=== PATIENT | female | born 1960 | race Caucasian/White ===

== ENCOUNTER 2018-08-07 03:55 | Inpatient (IN) ==
--- NOTE | 2018-08-07 04:10 | Emergency Department Note ---
Disposition Clinical Impression: Cellulitis Qualifiers: Site of cellulitis: extremity Site of cellulitis of extremity: lower extremity Laterality: right Qualified Code(s): L03.115 - Cellulitis of right lower limb Disposition: Still a Patient Referrals: NONE,PCP [Primary Care Provider] - Forms: ED Satisfaction Letter Lower Extremity Injury HPI - General Chief Complaint: ED Extremity Injury, Lower Stated Complaint: R foot injury Time Seen by Provider: 08/07/18 04:02 Source: patient Mode of arrival: private vehicle Limitations: no limitations Nursing Notes Reviewed: Yes Vital Signs Reviewed: Yes - History of Present Illness HPI Narrative: 57-year-old female presents to emergency room for evaluation of right lower extremity edema, redness, pain since Saturday. Patient states she is an IV drug user, patient states she utilized IV drugs on Saturday to her right foot since then swelling, pain, tenderness and has become worse and worse. Patient states was feeling time she used in her right foot. Patient denies fever, chills, nausea, vomiting, constipation or diarrhea. Onset (ago): day(s) Mechanism of Injury: other Context: other Improves with: nothing Worsens with: weight bearing, movement, palpation Associated symptoms: Reports: ambulatory - Related Data Allergies Allergy/AdvReac Type Severity Reaction Status Date / Time aspirin Allergy Hives Verified 08/07/18 04:00 vancomycin Allergy Hives Verified 08/07/18 04:00 All systems ED: reviewed and negative except as stated. Review of Systems: As Per HPI Constitutional: Denies: fever, chills Cardiovascular: Denies: chest pain Respiratory: Denies: cough Gastrointestinal: Denies: abdominal pain, nausea, vomiting Integumentary: Reports: other Past Medical History - Past Medical History Attestation: Yes The following information was validated with the patient. Source: patient Medical history: Reports: CHF Psychiatric history: Reports: depression - Social History Smoking Status: Current every day smoker Alcohol use: Reports: none Drug use: Reports: IV Drug Use Physical Exam - General Limitations: no limitations General appearance: alert, in no apparent distress - Head Head exam: atraumatic, normocephalic, normal inspection - Eye Eye exam: Present: normal appearance - Expanded Lower Extremity Exam Knee exam: Present: normal inspection, full ROM Lower leg exam: Present: tenderness, swelling Ankle exam: Present: tenderness, swelling, erythema. Absent: full ROM Foot/toe exam: Present: tenderness, swelling (Dorsal surface), erythema (Dorsal surface) Neurovascular/Tendon exam: Present: normal capillary refill. Absent: pulse deficit Gait: observed and limited by pain - Neurological Exam Neurological exam: Present: alert, oriented X3 - Psychiatric Psychiatric exam: Present: normal affect, normal mood - Skin Skin exam: Present: warm, dry, intact, normal color Course Course Narrative: Well-developed female in no acute distress. Right lower extremity noted with obvious edema, very erythema noted to the entire lower extremity from mid calf down to the mid dorsal surface of the foot. Patient is neurovascularly intact, capillary refill brisk. Able to bend flexes however with ankle she is unable to bend and flex as well due to the swelling and pain. Concern for deep tissue abscess related to mechanism of infection, we will CT her right lower extremity, obtain basic labs, blood cultures reevaluate. Most likely, patient will require admission for IV antibiotics rather there is an abscess with a surgical need or just treatment of cellulitis, I did discuss this with patient who would be agreeable to admission. Vital Signs Temperature 98.9 F 08/07/18 03:57 Pulse Rate 101 08/07/18 03:57 Respiratory Rate 20 08/07/18 03:57 Blood Pressure 134/78 08/07/18 03:57 O2 Sat by Pulse Oximetry 97 08/07/18 03:57 Temperature 98.9 F 08/07/18 03:57 Pulse Rate 101 08/07/18 03:57 Respiratory Rate 20 08/07/18 03:57 Blood Pressure 134/78 08/07/18 03:57 O2 Sat by Pulse Oximetry 97 08/07/18 03:57 Oxygen Delivery Oxygen Delivery Room Air Extremity Injury, Lower - Lab Data Result diagrams: 08/07/18 05:09 08/07/18 05:09 Lab Results 08/07/18 08/07/18 08/07/18 Range/Units 05:09 05:09 05:09 WBC 11.9 H (4.3-11.1) K/mcL RBC 5.07 H (3.82-4.97) M/mcL Hgb 14.5 (11.5-15.4) g/dL Hct 44.4 (35.3-44.9) % MCV 87.6 (83.0-100.0) fL MCH 28.6 (28.0-33.3) pg MCHC 32.7 (31.6-35.5) g/dL RDW 13.0 (11.5-14.5) % Plt Count 219 (140-400) K/mcL MPV 10.4 (9.4-12.4) fL Immature Gran % 0.4 (0-4) % Seg Neutrophils % 70.7 % Lymphocytes % 20.0 % Monocytes % 8.2 % Eosinophils % 0.3 % Basophils % 0.4 % Neutrophils # 8.4 (1.6-8.9) K/mcL Lymphocytes # 2.4 (0.6-4.6) K/mcL Monocytes # 1.0 (0.0-1.3) K/mcL Eosinophils # 0.0 (0.0-0.6) K/mcL Basophils # 0.1 (0.0-0.2) K/mcL Sodium 134 L (136-145) mEq/L Potassium 3.5 (3.5-5.1) mEq/L Chloride 102 (98-107) mEq/L Carbon Dioxide 27 (23-29) mEq/L BUN 12 (6-20) mg/dL Creatinine 0.61 (0.60-1.20) mg/dL Est GFR ( Amer) > 60 (> 60) Est GFR (Non-Af Amer) > 60 (> 60) BUN/Creatinine Ratio 20 (6-26) Glucose 103 (70-105) mg/dL Calculated Osmolality 278 L (280-300) Lactic Acid 0.7 (0.5-2.2) mmol/L Calcium 8.7 (8.6-10.3) mg/dL Total Bilirubin 0.7 (0.3-1.0) mg/dL Direct Bilirubin 0.2 (0.0-0.2) mg/dL Indirect Bilirubin 0.5 (0.0-1.2) mg/dL AST 13 (13-39) Units/L ALT 13 (7-52) Units/L Alkaline Phosphatase 73 (34-104) Units/L Serum Total Protein 6.9 (6.4-8.9) g/dL Albumin 3.7 (3.5-5.7) g/dL Globulin 3.2 (2.4-3.5) g/dL Albumin/Globulin Ratio 1.2 (1.1-2.2) SKiana - Jose Situation: Demographics, MOA Background: Presenting Complaint, Relevant PMH, Meds, & Allergies Assessment: Vital Signs, Course and respsone to treatment, Exam Concerns, Patient/Family Expectation, Pertinant Lab Results, Outstanding Labs Recommendation: Barrier(s) to disposition, Recommendation based on pending studies, treatments, or consults S.B.David Report Given to: Rosa Farrell CNP SKiana Repor Time: 06:00 Attestation Statement - Attestation Attestation: DR Medellin note: Patient was seen in conjunction with HUGO Yañez. Please see his charting for complete documentation. Assessment [id number] time with the patient and I agree with the patient's treatment and disposition. IV drug use w/ progressive redness/swelling to dorsum of Rt foot for 2-3 days; iv heroine use intermittent for years; non toxic in appearance; no posterior rt leg pain; no chest pain/sob at this time; cellultis is moderate/progressive and will require admission; bloodwork reviewed; abx ordered and being administered in the ER;
[2018-08-07] MEDS ORDERED: Isovue-370 500 ML INFUS..BTL IV ONE (04:19)
[2018-08-07] MEDS ORDERED: Doxycycline 100 MG in 0.9 % Sodium Chloride Mini Bag 100 ML IVPB ONE (04:45)
[2018-08-07] MEDS ORDERED: Piperacillin/Tazobactam 3.375 GM in 0.9 % Sodium Chloride Mini Bag 100 ML IVPB ONE (04:47)
[2018-08-07 05:24] LABS: Basophils # 0.1 K/mcL (0.0-0.2); Basophils % 0.4 %; Eosinophils % 0.3 %; Hematocrit 44.4 % (35.3-44.9); Hemoglobin 14.5 g/dL (11.5-15.4); Immature Granulocytes % 0.4 % (0-4); Lymphocytes # 2.4 K/mcL (0.6-4.6); Mean Corpuscular HGB Conc 32.7 g/dL (31.6-35.5); Mean Corpuscular Hemoglobin 28.6 pg (28.0-33.3); Mean Corpuscular Volume 87.6 fL (83.0-100.0); Mean Platelet Volume 10.4 fL (9.4-12.4); Monocytes % 8.2 %; Neutrophils # 8.4 K/mcL (1.6-8.9); Platelet Count 219 K/mcL (140-400); Red Blood Count 5.07 M/mcL (3.82-4.97); Segmented Neutrophils % 70.7 %
[2018-08-07 05:42] LABS: Alanine Aminotransferase 13 Units/L (7-52); Albumin 3.7 g/dL (3.5-5.7); Albumin/Globulin Ratio 1.2 (1.1-2.2); Alkaline Phosphatase 73 Units/L (34-104); Aspartate Amino Transferase 13 Units/L (13-39); BUN/Creatinine Ratio 20 (6-26); Bilirubin,Direct 0.2 mg/dL (0.0-0.2); Bilirubin,Indirect 0.5 mg/dL (0.0-1.2); Bilirubin,Total 0.7 mg/dL (0.3-1.0); Blood Urea Nitrogen 12 mg/dL (6-20); Calcium 8.7 mg/dL (8.6-10.3); Carbon Dioxide 27 mEq/L (23-29); Chloride 102 mEq/L (98-107); Globulin 3.2 g/dL (2.4-3.5); Glucose 103 mg/dL (70-105); Osmolality,Calculated 278 (280-300); Potassium 3.5 mEq/L (3.5-5.1); Sodium 134 mEq/L (136-145); Total Protein 6.9 g/dL (6.4-8.9); eGFR For Non-African Americans > 60 (> 60)
[2018-08-07] MEDS ORDERED: Ketorolac 15 MG/ML VIAL IVP ONE (06:00)
--- NOTE | 2018-08-07 06:22 | Emergency Department Note ---
Disposition Clinical Impression: Cellulitis of right lower extremity Disposition: Admitted As Inpatient Referrals: NONE,PCP [Primary Care Provider] - Forms: ED Satisfaction Letter Time of Disposition: 10:36 (Patient eloped) General Adult HPI - General Chief complaint: ED Extremity Injury, Lower Stated complaint: R foot injury Time Seen by Provider: 08/07/18 04:02 Source: patient Mode of arrival: private vehicle Limitations: no limitations - History of Present Illness Pain Scale: 8 - Related Data Home Medications Medication Instructions Recorded Confirmed Albuterol Sulfate [Albuterol 2 puff IH Q4H PRN 08/07/18 08/07/18 Inhaler] Duloxetine HCl [Cymbalta] 60 mg PO DAILY 08/07/18 08/07/18 Quetiapine Fumarate [SEROquel] 12.5 mg PO HS PRN 08/07/18 08/07/18 Umeclidinium [place] [Incruse 62.5 mcg IH DAILY 08/07/18 08/07/18 Ellipta] Allergies Allergy/AdvReac Type Severity Reaction Status Date / Time aspirin Allergy Hives Verified 08/07/18 04:00 vancomycin Allergy Hives Verified 08/07/18 04:00 Constitutional: Denies: fever, chills Cardiovascular: Denies: chest pain Respiratory: Denies: cough Gastrointestinal: Denies: abdominal pain, nausea, vomiting Integumentary: Reports: other Past Medical History - Past Medical History Medical history: Reports: CHF Psychiatric history: Reports: depression - Social History Smoking Status: Current every day smoker Alcohol use: Reports: none Drug use: Reports: IV Drug Use Physical Exam - General Limitations: no limitations General appearance: alert, in no apparent distress Course Course Narrative: 0600: I have assumed care of this patient from HUGO De Leon due to mid-level shift change. Valencia De Leon's documentation for care performed prior to my arrival. Briefly, this is an alert and oriented nontoxic-appearing 57-year-old female that presented to the emergency room for evaluation of right lower extremity swelling, redness, and pain that began this past Saturday. The patient is an admitted IV drug user and states that she injected into the right foot on Saturday. Pain, redness, and swelling have worsened since. She denied any fever or, chills, nausea, or vomiting. Laboratory workup has been performed. The patient has been given a dose of doxycycline and Zosyn, as she is vancomycin allergic. Toradol has been ordered for pain. At this time, CT imaging of the right lower extremity is pending. The patient will be admitted to the hospitalist service for further management. 0955: I have been informed by the patient home care scheduler that when she entered the room to check on the patient, her IV was found to be removed and lying on the bed. Her belongings were out of the room. We were awaiting results of her CT of the right lower extremity prior to admission to the hospitalist service. CT had been called on 2 separate instances and I had called Rad 1 to investigate delay for the CT read. Rad 1 had stated that they had to call in an IR physician to read her CT report. At this time, it appears that the patient has eloped. 1015: The patient has returned to her room. We will continue with admission to the hospitalist service once CT imaging is read. 1030: I spoke with Dr. Hahn of the hospitalist service who has accepted the patient for admission to the hospitalist care. 1035: I spoke with Dr. Vick, sales ledger administrator aeronautical engineering officer. Dr. Vick states that he will train this patient's abscess personally and we will consult with her on the floor. Vital Signs Temperature 98.9 F 08/07/18 03:57 Pulse Rate 101 08/07/18 03:57 Respiratory Rate 20 08/07/18 03:57 Blood Pressure 134/78 08/07/18 03:57 O2 Sat by Pulse Oximetry 97 08/07/18 03:57 Temperature 98.9 F 08/07/18 03:57 Pulse Rate 74 08/07/18 08:48 Respiratory Rate 17 08/07/18 08:48 Blood Pressure 113/71 08/07/18 08:48 O2 Sat by Pulse Oximetry 97 08/07/18 08:48 Oxygen Delivery Oxygen Delivery Room Air Medical Decision Making - Medical Records Medical records reviewed: Yes I reviewed the patient's medical records. - Lab Data Lab results reviewed: Yes I reviewed the patient's lab results. Lab results narrative: Lab Results 08/07/18 08/07/18 08/07/18 Range/Units 05:09 05:09 05:09 WBC 11.9 H (4.3-11.1) K/mcL RBC 5.07 H (3.82-4.97) M/mcL Hgb 14.5 (11.5-15.4) g/dL Hct 44.4 (35.3-44.9) % MCV 87.6 (83.0-100.0) fL MCH 28.6 (28.0-33.3) pg MCHC 32.7 (31.6-35.5) g/dL RDW 13.0 (11.5-14.5) % Plt Count 219 (140-400) K/mcL MPV 10.4 (9.4-12.4) fL Immature Gran % 0.4 (0-4) % Seg Neutrophils % 70.7 % Lymphocytes % 20.0 % Monocytes % 8.2 % Eosinophils % 0.3 % Basophils % 0.4 % Neutrophils # 8.4 (1.6-8.9) K/mcL Lymphocytes # 2.4 (0.6-4.6) K/mcL Monocytes # 1.0 (0.0-1.3) K/mcL Eosinophils # 0.0 (0.0-0.6) K/mcL Basophils # 0.1 (0.0-0.2) K/mcL Sodium 134 L (136-145) mEq/L Potassium 3.5 (3.5-5.1) mEq/L Chloride 102 (98-107) mEq/L Carbon Dioxide 27 (23-29) mEq/L BUN 12 (6-20) mg/dL Creatinine 0.61 (0.60-1.20) mg/dL Est GFR ( Amer) > 60 (> 60) Est GFR (Non-Af Amer) > 60 (> 60) BUN/Creatinine Ratio 20 (6-26) Glucose 103 (70-105) mg/dL Calculated Osmolality 278 L (280-300) Lactic Acid 0.7 (0.5-2.2) mmol/L Calcium 8.7 (8.6-10.3) mg/dL Total Bilirubin 0.7 (0.3-1.0) mg/dL Direct Bilirubin 0.2 (0.0-0.2) mg/dL Indirect Bilirubin 0.5 (0.0-1.2) mg/dL AST 13 (13-39) Units/L ALT 13 (7-52) Units/L Alkaline Phosphatase 73 (34-104) Units/L Serum Total Protein 6.9 (6.4-8.9) g/dL Albumin 3.7 (3.5-5.7) g/dL Globulin 3.2 (2.4-3.5) g/dL Albumin/Globulin Ratio 1.2 (1.1-2.2) Result diagrams: 08/07/18 05:09 08/07/18 05:09 Lab Results 08/07/18 08/07/18 08/07/18 Range/Units 05:09 05:09 05:09 WBC 11.9 H (4.3-11.1) K/mcL RBC 5.07 H (3.82-4.97) M/mcL Hgb 14.5 (11.5-15.4) g/dL Hct 44.4 (35.3-44.9) % MCV 87.6 (83.0-100.0) fL MCH 28.6 (28.0-33.3) pg MCHC 32.7 (31.6-35.5) g/dL RDW 13.0 (11.5-14.5) % Plt Count 219 (140-400) K/mcL MPV 10.4 (9.4-12.4) fL Immature Gran % 0.4 (0-4) % Seg Neutrophils % 70.7 % Lymphocytes % 20.0 % Monocytes % 8.2 % Eosinophils % 0.3 % Basophils % 0.4 % Neutrophils # 8.4 (1.6-8.9) K/mcL Lymphocytes # 2.4 (0.6-4.6) K/mcL Monocytes # 1.0 (0.0-1.3) K/mcL Eosinophils # 0.0 (0.0-0.6) K/mcL Basophils # 0.1 (0.0-0.2) K/mcL Sodium 134 L (136-145) mEq/L Potassium 3.5 (3.5-5.1) mEq/L Chloride 102 (98-107) mEq/L Carbon Dioxide 27 (23-29) mEq/L BUN 12 (6-20) mg/dL Creatinine 0.61 (0.60-1.20) mg/dL Est GFR ( Amer) > 60 (> 60) Est GFR (Non-Af Amer) > 60 (> 60) BUN/Creatinine Ratio 20 (6-26) Glucose 103 (70-105) mg/dL Calculated Osmolality 278 L (280-300) Lactic Acid 0.7 (0.5-2.2) mmol/L Calcium 8.7 (8.6-10.3) mg/dL Total Bilirubin 0.7 (0.3-1.0) mg/dL Direct Bilirubin 0.2 (0.0-0.2) mg/dL Indirect Bilirubin 0.5 (0.0-1.2) mg/dL AST 13 (13-39) Units/L ALT 13 (7-52) Units/L Alkaline Phosphatase 73 (34-104) Units/L Serum Total Protein 6.9 (6.4-8.9) g/dL Albumin 3.7 (3.5-5.7) g/dL Globulin 3.2 (2.4-3.5) g/dL Albumin/Globulin Ratio 1.2 (1.1-2.2)
--- NOTE | 2018-08-07 10:54 | Internal Med History&Physical ---
<Bonilla Ceron - Last Filed: 08/07/18 13:12> Date of Encounter: 08/07/18 Time of Encounter: 10:52 Internal Medicine - H&P: HPI Chief complaint: right lower leg pain Admitted From: Home Plans for Post Hospital Care: Home History of present illness: Ms. Gee is a 57 year old female with known medical hx of IV drug use (heroin), Hepatitis C, COPD, Previous abscess in left axilla with IV drug use presented to the emergency department with 4 days of right ankle and LE swelling. She states she relapsed and started using IV drugs roughly a month ago with last use withing the past 24hrs. She had been injecting into her LE and right ankle recently and 4 days ago she started noticing erythema, tenderness and swelling of the ankle moving up the lower extremity. She had severe pain in the right an kle and unable to bear weight on her right LE. She also admits to subjective fevers, chills and diaphoresis over the past 3 days too. She did not try any medication or therapies to treat her lower extremity. She did not seek any medical treatment prior. She denies any painful joints besides her right ankle, and denies any other lesions or abscesses on her body. It has been a long time since she was evaluated for HIV and says that she cleans her needles with alcohol and denies sharing needles. Past Med Surg Social Fam HX - Past Medical History Medical history: CHF Psychiatric history: depression - Past Surgical History Additional surgical history: R knee - Social History Smoking Status: Current every day smoker Alcohol use: none Drug use: IV Drug Use Internal Medicine - H&P: Meds Albuterol Sulfate [Albuterol Inhaler] 2 puff IH Q4H PRN 08/07/18 [History] Duloxetine HCl [Cymbalta] 60 mg PO DAILY 08/07/18 [History] Quetiapine Fumarate [SEROquel] 12.5 mg PO HS PRN 08/07/18 [History] Umeclidinium [place] [Incruse Ellipta] 62.5 mcg IH DAILY 08/07/18 [History] Allergy/AdvReac Type Severity Reaction Status Date / Time aspirin Allergy Hives Verified 08/07/18 04:00 vancomycin Allergy Hives Verified 08/07/18 04:00 All Systems PM: A 10-system review of systems was performed and is negative for pertinent findings except as documented above in the HPI. Review of systems: + cough, Fevers, chills, diaphoresis, lower extremity erythema, edema and pain denies change in mental status, blurry vision, - Constitutional Vitals: Temp Pulse Resp BP Pulse Ox 98.9 F 74 17 113/71 97 08/07/18 03:57 08/07/18 08:48 08/07/18 08:48 08/07/18 08:48 08/07/18 08:48 Exam: Gen. alert awake oriented interactive no acute distress HEENT normocephalic, atraumatic, pupils equal and reactive oral mucosa moist, poor dentition Cardiac regular rate rhythm positive S2 S1 no murmurs or gallops appreciated, radial pulses 2+ bilateral Respiratory diffuse wheezing on inspiratory and expiratory efforts, nonlabored Abdomen soft nontender to palpation positive bowel sounds Extremities bilateral upper extremities demonstrate multiple scratch and injection sites, right lower extremity demonstrates erythema, edema, fullness and abscess to the medial portion of the right ankle, there is diffuse warmth and tense skin all the way up to the knee. Left lower extremity demonstrates occasional injection sites but no signs of urine or other lesions. Internal Med - H&P Results - Labs CBC & Chem 7: 08/07/18 05:09 08/07/18 05:09 Labs: Short CBC 08/07/18 Range/Units 05:09 WBC 11.9 H (4.3-11.1) K/mcL Hgb 14.5 (11.5-15.4) g/dL Hct 44.4 (35.3-44.9) % Plt Count 219 (140-400) K/mcL Neutrophils # 8.4 (1.6-8.9) K/mcL BMP 08/07/18 05:09 Sodium 134 L Potassium 3.5 Chloride 102 Carbon Dioxide 27 BUN 12 Creatinine 0.61 Glucose 103 Calcium 8.7 Liver Function 08/07/18 Range/Units 05:09 Total Bilirubin 0.7 (0.3-1.0) mg/dL Direct Bilirubin 0.2 (0.0-0.2) mg/dL AST 13 (13-39) Units/L ALT 13 (7-52) Units/L Alkaline Phosphatase 73 (34-104) Units/L Albumin 3.7 (3.5-5.7) g/dL - Impressions ITS Impressions Lower Extremity CT 08/07/18 04:19 IMPRESSION: 1. Moderate-size subcutaneous fluid collection overlying the medial malleolus measuring approximately 4 x 4 x 1 cm, most likely an abscess. 2. Subcutaneous edema diffusely, most pronounced about the ankle, hind and mid foot and likely reflecting cellulitis. 3. Nmtr-uv-iyrogesa tibialis posterior tenosynovitis, reactive versus infectious. D/ : / 08/07/2018 10:37:04 Je Byers MD / Hannah Faria Interpreting Provider: Je Byers MD - Assessment and plan (1) Sepsis Current Visit: Yes Status: Resolved Assessment and plan: Patient presented with right lower showing cellulitis and abscess with initial presentation of tachycardia, WBC elevated around 12. - Tachycardia has since resolved - Blood pressure stable, afebrile and respiratory rate appropriate. - Blood cultures collected in the emergency department - Initial lactic acid 0.7 - IV antibiotics started in the emergency department Plan: - Continue IV doxycycline and Zosyn - Monitor vitals - Nothing by mouth possible intervention by podiatry today. Qualifiers: Sepsis type: sepsis due to unspecified organism Qualified Code(s): A41.9 - Sepsis, unspecified organism (2) Abscess of right lower extremity excluding foot Current Visit: Yes Status: Acute Assessment and plan: Patient has CT findings and clinical findings of abscess over her right medial malleolus secondary to IV drug use. - Received 1 dose of Zosyn and doxycycline in the emergency department - Podiatry to evaluate patient and drainage abscess. - Continue Zosyn, Doxycycline IV - Wound cultures and BC pending (3) IV drug abuse Current Visit: Yes Status: Acute Assessment and plan: Known history of IV drug use, patient admits to injecting heroin into her foot at the site of abscess. (4) DVT prophylaxis Current Visit: Yes Status: Acute Assessment and plan: Subcutaneous heparin every 8 hours - Time Spent With Patient Total time spent is greater than 50% in coordination of care (as documented) at patient's floor/unit and/or counseling patient: <JovaniSrendy - Last Filed: 08/07/18 13:45> Date of Encounter: 08/07/18 Time of Encounter: 12:30 Internal Medicine - H&P: HPI History of present illness: Ms. Gee is a 57 year old female Past Med Surg Social Fam HX - Additional Family History Additional family history: Family history reviewed and found to be noncontributory at this time All Systems PM: A 10-system review of systems was performed and is negative for pertinent findings except as documented above in the HPI. - Constitutional Vitals: Temp Pulse Resp BP Pulse Ox 98.9 F 74 17 113/71 97 08/07/18 03:57 08/07/18 08:48 08/07/18 08:48 08/07/18 08:48 08/07/18 08:48 Internal Med - H&P Results - Labs CBC & Chem 7: 08/07/18 05:09 08/07/18 05:09 Labs: Short CBC 08/07/18 Range/Units 05:09 WBC 11.9 H (4.3-11.1) K/mcL Hgb 14.5 (11.5-15.4) g/dL Hct 44.4 (35.3-44.9) % Plt Count 219 (140-400) K/mcL Neutrophils # 8.4 (1.6-8.9) K/mcL BMP 08/07/18 05:09 Sodium 134 L Potassium 3.5 Chloride 102 Carbon Dioxide 27 BUN 12 Creatinine 0.61 Glucose 103 Calcium 8.7 Liver Function 08/07/18 Range/Units 05:09 Total Bilirubin 0.7 (0.3-1.0) mg/dL Direct Bilirubin 0.2 (0.0-0.2) mg/dL AST 13 (13-39) Units/L ALT 13 (7-52) Units/L Alkaline Phosphatase 73 (34-104) Units/L Albumin 3.7 (3.5-5.7) g/dL - Impressions ITS Impressions Lower Extremity CT 08/07/18 04:19 IMPRESSION: 1. Moderate-size subcutaneous fluid collection overlying the medial malleolus measuring approximately 4 x 4 x 1 cm, most likely an abscess. 2. Subcutaneous edema diffusely, most pronounced about the ankle, hind and mid foot and likely reflecting cellulitis. 3. Hjni-bm-lgxhyaez tibialis posterior tenosynovitis, reactive versus infectious. D/ : / 08/07/2018 10:37:04 Je Byers MD / Hannah Faria Interpreting Provider: Je Byers MD - Assessment and plan (1) Abscess of right lower extremity excluding foot Current Visit: Yes Status: Acute (2) IV drug abuse Current Visit: Yes Status: Acute (3) Sepsis Current Visit: Yes Status: Resolved Qualifiers: Sepsis type: sepsis due to unspecified organism Qualified Code(s): A41.9 - Sepsis, unspecified organism (4) DVT prophylaxis Current Visit: Yes Status: Acute - Time Spent With Patient Total time spent is greater than 50% in coordination of care (as documented) at patient's floor/unit and/or counseling patient: - Attending Attestation I saw evaluated and examined this patient and my medical decision-making was reviewed with the Resident Physician, Bonilla Ceron. I agree with the documented findings, disposition and treatment plan as described except to any changes set forth below. We independently had kqxi-ea-uqzp contact with the patient. 57-year-old female patient with a history of hepatitis C, IV drug abuse presented to the ER with complaints of right foot pain and swelling. She had previously injected heroin through one of her foot weans 4-5 days back. She began to develop swelling and erythema in this foot about 3 days back. Patient has had subjective fevers chills and sweats. She denies any nausea or vomiting. She does have chronic cough with mild sputum production. Denies any abdominal pain. No blurred vision. No confusion or hallucinations. She states that she relapsed and started using IV drugs for a month and her last use was within the past 24 hours. General: Patient is alert, mild distress, oriented x 3, somnolent but easily awakes, patient is disheveled Head: atraumatic, normocephalic, ENT: Mucous membranes moist Eye: normal appearance, PERRL, no scleral icterus, no conjunctival injection Neck: normal inspection, trachea midline, full ROM, no carotid bruits Chest: normal inspection, symmetric chest rise Respiratory: Good respiratory effort. Prolonged expiratory phase. Mild end expiratory wheezing. Cardiovascular: Regular rate and rhythm. s1 and s2 normal No clicks, rubs, gallops, or murmurs. No pedal edema Abdomen: Abdomen is soft, nontender. Bowel sounds are present Musculoskeletal: Spontaneously moving all extremities , swelling in his erythema involving the right foot. Swelling present over the entire foot with a pocket of fluctuance just above the medial malleolus. Tender to palpation. Cellulitis extends up along the lower leg. Mild tenderness in the right inguinal region. Patient also has a swelling measuring about 4-5 cm in size over the right forearm. Skin: Erythema as mentioned above Neuro: Alert oriented x 3 normal cranial nerves, no focal deficits Psych: Patient's affect is normal Sepsis from cellulitis and abscess involving the right foot: Due to IV drug abuse. Sepsis initially on presentation but has since resolved. Will start patient on broad-spectrum antibiotics. Follow blood culture results. Obtain chest x-ray. Consult podiatry for evaluation of right foot abscess and possible drainage. Moderate risk for complications. Right forearm cellulitis and developing abscess: Patient also has cellulitis an indurated lesion on the right forearm. May develop an abscess eventually and will need to be drained too. For now will continue antibiotics. IV drug abuse: With heroin. Monitor for signs of withdrawal. If patient develops symptoms of withdrawal, will treat with benzodiazepines as needed. Chronic tobacco abuse: We will order nicotine patch as needed. DVT prophylaxis with subcutaneous heparin
[2018-08-07] MEDS ORDERED: Naloxone 0.4 MG/ML INJ IVP PRN (11:31)
[2018-08-07] MEDS ORDERED: Acetaminophen 325 MG TABLET PO PRN (11:31)
[2018-08-07] MEDS: Nicotine 21 MG PATCH.TD24 TD SCH (14:36)
[2018-08-07] MEDS: 0.9 % Sodium Chloride 1,000 ML IVC SCH (14:36)
[2018-08-07] MEDS: Piperacillin/Tazobactam 3.375 GM in 0.9 % Sodium Chloride Mini Bag 100 ML IVPB SCH ×2 (14:37→22:09)
[2018-08-07] MEDS: DAPTOmycin 400 MG in 0.9 % Sodium Chloride 100 ML IVPB SCH (16:26)
--- NOTE | 2018-08-07 16:47 | Podiatry History & Physical ---
Addendum entered and electronically signed by Edgar Vick DPM 08/07/18 17:15: agree with the below. discussed nature of the incision and drainage, risks vs benefits potential complications and consequences of surgery and her condition. it was explained to the patient this will likely be a staged procedure and she will require more trips to the operating room and it is possible that with her infection she could lose her leg. no guarantees made as to the outcome of any procedure. added on to OR. informed consent obtained. all questions answered. Original Note: History of Present Illness HPI: Ms. Gee is a 57 year old female who was admitted today for a right lower extremity swelling, pain, and abscess. PMH of IV heroin use, Hep. C, COPD, and previous abscess. She states a "couple days ago" she was using heroin when she "shot up and missed". Reports anywhere from 2-3 days. Reports using clean needle. Denies any other drug use. Reports smoking 1 pack per day. Denies alcohol use. Denies any fever, chills, nausea, vomiting, diarrhea. Denies any chest pain, calf pain, or shortness of breath. Reports since then she has had redness, warmth, swelling to right lower extremity. States right lower extremity is painful when trying to walk or move foot. Again Ms. Gee is a 57-year-old female, with right lower extremity edema. Bilateral lower extremities warm to touch. Right lower extremity is not markedly warmer than left. 2+ edema noted to right lower extremity. Right medial malleolus noted to have 3 areas of fluid-filled bullae. Fluctuance noted. Erythema noted to right lower extremity, marked. Multiple small needle- like punctures noted to bilateral feet. All Systems Reviewed: The remainder of the systems were reviewed and are negative - Constitutional Constitutional: no fever(s) - Cardiovascular Cardiovascular: edema, leg edema, pedal edema, no chest pain, no dyspnea - Respiratory Respiratory: no dyspnea - Musculoskeletal Musculoskeletal: limited range of motion, numbness Past Med Surg Social Fam HX - Past Medical History Medical history: CHF Psychiatric history: depression - Past Surgical History Additional surgical history: R knee - Social History Smoking Status: Current every day smoker Packs per day: 1 Alcohol use: none Drug use: IV Drug Use Medications and Allergies Albuterol Sulfate [Albuterol Inhaler] 2 puff IH Q4H PRN 08/07/18 [History] Duloxetine HCl [Cymbalta] 60 mg PO DAILY 08/07/18 [History] Quetiapine Fumarate [SEROquel] 12.5 mg PO HS PRN 08/07/18 [History] Umeclidinium [place] [Incruse Ellipta] 62.5 mcg IH DAILY 08/07/18 [History] Allergy/AdvReac Type Severity Reaction Status Date / Time aspirin Allergy Hives Verified 08/07/18 04:00 vancomycin Allergy Hives Verified 08/07/18 04:00 Physical Exam - Constitutional Vitals: Temp Pulse Resp BP Pulse Ox 99.6 F 84 12 149/88 95 08/07/18 14:01 08/07/18 14:01 08/07/18 14:01 08/07/18 14:01 08/07/18 14:01 Exam: Constitiutional: Lethargic, oriented x 3. Vascular: 2/4 DP/PT bilaterally, CFT <3 sec to all digits, warm to warm from tibia to toes bilaterally, 2+ edema RLE, erythema noted RLE, marked Neurologic: Sensation to touch, normal plantar response, Normal position sense dorsiflexion/plantar flexion Dermatologic: erythema noted RLE, marked, 3 fluid filled bullae noted, fluctuance noted, small needle-like truong noted to bilateral feet. Musculoskeletal: 3/5 muscle strength and normal tone RLE. Results - Labs Result Diagrams: 08/07/18 05:09 08/07/18 05:09 Labs: Abnormal lab results WBC 11.9 K/mcL (4.3-11.1) H 08/07/18 05:09 RBC 5.07 M/mcL (3.82-4.97) H 08/07/18 05:09 ESR 21 mm/hr (0-15) H 08/07/18 14:11 Sodium 134 mEq/L (136-145) L 08/07/18 05:09 Calculated Osmolality 278 (280-300) L 08/07/18 05:09 C-Reactive Protein 115 mg/L (Less than 10) H 08/07/18 14:11 H & H 08/07/18 Range/Units 05:09 Hgb 14.5 (11.5-15.4) g/dL Hct 44.4 (35.3-44.9) % All other labs normal. Assessment and Plan (1) Abscess of right lower extremity excluding foot Current visit: Yes Status: Acute Assessment: Abscess right medial malleolus Bilateral lower extremities warm to touch. Right lower extremity is not markedly warmer than left. 2+ edema noted to right lower extremity. Right medial malleolus noted to have 3 areas of fluid-filled bullae. Fluctuance noted. Erythema noted to right lower extremity, marked. Multiple small needle-like punctures noted to bilateral feet. Plan: I&D tonight with Dr. Vick. Remain NPO. Agree with IV atb. (2) Cellulitis of right lower extremity Current visit: Yes Status: Acute Assessment: see above Plan: Continue IV atb. OR tonight with Dr. Vick for I&D. (3) IV drug abuse Current visit: Yes Status: Acute Plan: Encouraged patient to stop using IV drugs. Will likely need social service consult for outpatient therapy
[2018-08-07] MEDS ORDERED: Bupivacaine-MPF 0.25% 10 ML VIAL ONE (17:05)
[2018-08-07] MEDS ORDERED: Vancomycin 1,000 MG VIAL ONE (17:06)
--- NOTE | 2018-08-07 17:07 | Anesthesia Evaluation PreOp ---
Date of Encounter: 08/07/18 Time of Encounter: 19:00 - Past History Planned Operation: Incision Drainage Ankle Cardiac History: CHF Pulmonary History: Smoker CAT DRIVER History: Denies Any Significant HX Other Medical History: Hepatic (Hepatitis) Anesthesia History: No Prior Anesthetic Complications Alcohol Use: none Drug use: IV Drug Use Medications and Allergies Albuterol Sulfate [Albuterol Inhaler] 2 puff IH Q4H PRN 08/07/18 [History] Duloxetine HCl [Cymbalta] 60 mg PO DAILY 08/07/18 [History] Quetiapine Fumarate [SEROquel] 12.5 mg PO HS PRN 08/07/18 [History] Umeclidinium [place] [Incruse Ellipta] 62.5 mcg IH DAILY 08/07/18 [History] Allergy/AdvReac Type Severity Reaction Status Date / Time aspirin Allergy Hives Verified 08/07/18 04:00 vancomycin Allergy Hives Verified 08/07/18 04:00 - Meds/Allergy Pre-op Review Medications Reviewed: Yes Allergies Reviewed: Yes Beta Blockers on Current Med List: No Anesthesia Results - Labs 08/07/18 05:09 08/07/18 05:09 Anesthesia Exam O2 Sat Height 1.65 m Weight 49 kg Weight 47.627 kg O2 Sat by Pulse Oximetry 95 O2 Sat by Pulse Oximetry 97 O2 Sat by Pulse Oximetry 100 O2 Sat by Pulse Oximetry 100 O2 Sat by Pulse Oximetry 97 Vital Signs Temp Pulse Resp BP Pulse Ox 98.9 F 101 20 134/78 97 08/07/18 03:57 08/07/18 03:57 08/07/18 03:57 08/07/18 03:57 08/07/18 03:57 Height: 5'5 Weight: 108 lbs NPO (# of Hours): MN Pain Scale: 0 - HEENT Pupil (Motor): Pupils equal Mallampati: II Teeth: Missing, Poor dentition Oral Opening: Greater than 3 - CAT DRIVER LOC: Oriented CAT DRIVER Motor: Normal RUE, Normal LUE, Normal RLE, Normal LLE, Normal Face CAT DRIVER Sensory: Normal: RUE, LUE, RLE, LLE, Face - Cardiac Rhythm: Regular Murmur: None JVD: No Carotid Bruit: No - Pulmonary Breath Sounds: bilateral Clear Respiratory Effort: Symmetrical Anesthesia Assess/Plan ASA Score: 3 Level of consciousness: Cooperative, Oriented Anesthetic Plan: General Autologous Blood: No Monitoring Plan: Standard Monitors Recovery Plan: PACU (Discussed GA, agrees to proceed)
[2018-08-07] MEDS ORDERED: Albuterol 2.5 MG/3 ML NEBULIZER IH ONE (17:08)
[2018-08-07] MEDS ORDERED: *HR* Propofol 200 MG/20 ML VIAL IVP ONE ×3 (17:15→18:19)
[2018-08-07] MEDS ORDERED: Ondansetron 4 MG/2 ML VIAL ONE (17:15)
[2018-08-07] MEDS ORDERED: Dexamethasone 4 MG/ML VIAL ONE (17:15)
[2018-08-07] MEDS ORDERED: *HR* Midazolam HCl 2 MG/2 ML VIAL ONE (17:15)
[2018-08-07] MEDS ORDERED: *HR* FentaNYL (PF) 100 MCG/2 ML VIAL ONE (17:15)
[2018-08-07] MEDS ORDERED: Lidocaine -MPF 2% 2 ML VIAL ONE (17:15)
[2018-08-07] MEDS ORDERED: Gentamicin 80 MG/2 ML VIAL ONE (17:18)
[2018-08-07] MEDS ORDERED: Lidocaine/EPI 1:100k 1% 20 ML VIAL ONE (17:27)
[2018-08-07] MEDS ORDERED: *HR* Morphine 10 MG/ML VIAL ONE (17:58)
--- NOTE | 2018-08-07 17:58 | Operative Note ---
Date of procedure: 08/07/18 Pre-op diagnosis: right ankle abscess Post-op diagnosis: same Procedure: incision and drainage right ankle abscess Implants: none Complications: none Anesthesia: GETA Local Anesthetics: 1% Lidocaine HCL with Epinephrine 1:200,000 SubQ (cc) Surgeon: Edgar Vick Was there an cleaner assistant present: No Estimated blood loss (cc): 30 Specimen: right ankle culture Condition: stable Disposition: PACU Procedure in Detail: Indications: 57-year-old female admitted with abscess of right ankle due to IV drug abuse. Nature procedure risks versus benefits potential palpitations consequences surgery condition discussed at length. Discussed with patient she could lose her leg with this infection. All her questions answered informed consent was signed patient's leg was prepped in the usual sterile fashion following procedure began. No guarantees were made as to the outcome of any procedure or that she would not lose her leg. Right ankle incision and drainage. Attention was directed to medial aspect of the patient's right ankle #15 blade used to make 2 incisions along the areas of fluctuance. Purulent drainage was expressed from the subcutaneous tissue and noted to track and the deep fascial tissue. Culture swabs of the purulent drainage were taken and sent to microbiology. The medial tendons were traced along their course. No purulent drainage was noted to track along the tendons are and the tendon sheaths. The pulse lavage was utilized to irrigate the site with gentamicin. Upon reinspection no further purulent drainage could be identified. Remaining tissue did not appear devitalized. Site was deemed adequate for partial closure which was performed with 2-0 Prolene. The lateral aspect of the ankle had fluctuance which was incised in did not express purulent drainage. This incision was closed with 2-0 Prolene. Medial incisions were partially closed with 2-0 Prolene and the remainder was packed open with half- inch iodoform packing. Postoperative bandaging included Adaptic 4 x 4 gauze ABDs Kerlix and an Jack wrap. Patient tolerated anesthesia procedure well escorted recovery room vital signs stable and vascular status intact to the right foot noted by instant capillary refill time to the digits of the right foot. Patient will return to the floor where she will continue IV antibiotics.
[2018-08-07] MEDS ORDERED: *HR* Promethazine 25 MG/ML VIAL IVP PRN (18:14)
[2018-08-07] MEDS ORDERED: *HR* PHENYLEPHRINE 1,000 MCG/10 ML SYRINGE IVP ONE (18:16)
[2018-08-07] MEDS: *HR* HYDROmorphone (PF) 1 MG/ML SYRINGE IVP PRN ×4 (18:53→19:08)
[2018-08-07] MEDS ORDERED: Doxycycline 100 MG in 0.9 % Sodium Chloride Mini Bag 100 ML IVPB SCH (19:00)
--- NOTE | 2018-08-07 19:24 | Anesthesia Evaluation Post Op ---
Date of Encounter: 08/07/18 Time of Encounter: 19:25 - Vital Signs Vital Signs: Vital Signs/O2 Sat/Glucose, Most Current Temp Pulse Resp BP Pulse Ox 08/07/18 19:10 91 24 118/69 96 08/07/18 19:00 99.8 F H 93 24 121/76 96 08/07/18 18:50 87 28 122/78 96 08/07/18 18:40 85 28 103/68 97 08/07/18 18:30 99.8 F H 84 30 88/56 97 - Lungs Lungs: Clear Ascult./Percussion - Airway Airway: Non-obstructed - Cardiovascular Regular Rate - Mental Status Mental Status: Alert & Oriented, Answers Appropriately - Pain Pain Scale: 0 - Nausea Vomiting Nausea Vomiting: Not Present - Hydration Hydration: Ice chips - Discharge PostOp Status: Transfer Patient to floor
[2018-08-07] MEDS: *HR* Heparin 5,000 UNIT/ML VIAL SQ SCH (19:55)
[2018-08-07] MEDS: traMADol 50 MG TABLET PO PRN (19:55)
[2018-08-07] MEDS: *HR* OxyCODONE Immed Rel 5 MG TABLET PO PRN (22:13)
[2018-08-08] MEDS: traMADol 50 MG TABLET PO PRN ×3 (03:14→18:15)
[2018-08-08] MEDS: 0.9 % Sodium Chloride 1,000 ML IVC SCH (03:16)
[2018-08-08 05:03] LABS: Basophils % 0.2 %; Hematocrit 41.9 % (35.3-44.9); Hemoglobin 13.3 g/dL (11.5-15.4); Immature Granulocytes % 0.4 % (0-4); Lymphocytes # 1.1 K/mcL (0.6-4.6); Lymphocytes % 10.2 %; Mean Corpuscular HGB Conc 31.7 g/dL (31.6-35.5); Mean Corpuscular Hemoglobin 27.9 pg (28.0-33.3); Mean Corpuscular Volume 87.8 fL (83.0-100.0); Mean Platelet Volume 11.2 fL (9.4-12.4); Monocytes # 0.7 K/mcL (0.0-1.3); Monocytes % 6.9 %; Neutrophils # 8.8 K/mcL (1.6-8.9); Platelet Count 223 K/mcL (140-400); Red Blood Count 4.77 M/mcL (3.82-4.97); Red Cell Distribution Width 12.8 % (11.5-14.5); Segmented Neutrophils % 82.3 %
[2018-08-08] MEDS: *HR* Heparin 5,000 UNIT/ML VIAL SQ SCH ×2 (05:58→17:41)
[2018-08-08] MEDS: Piperacillin/Tazobactam 3.375 GM in 0.9 % Sodium Chloride Mini Bag 100 ML IVPB SCH ×3 (05:59→20:48)
[2018-08-08] MEDS: *HR* OxyCODONE Immed Rel 5 MG TABLET PO PRN ×2 (06:03→13:31)
[2018-08-08] MEDS: Nicotine 21 MG PATCH.TD24 TD SCH (09:11)
--- NOTE | 2018-08-08 12:36 | Infectious Disease Consult ---
Date of Encounter: 08/08/18 Time of Encounter: 12:34 Assessment and Plan (1) Sepsis Status: Resolved Assessment and plan: The patient had two SIRS criteria on admission. Likely secondary to right foot/ankle infection. Improved. WBC normal. Tachycardia has resolved. Blood cultures drawn 08/07/18 are NGTD x 2 sets. Recommendations: Await cultures. Check baseline CK level. Check hepatitis B serologies and HIV. Wound care and activity per Podiatry. Pain management per the primary team. Continue daptomycin 6mg/kg IV daily. Continue Zosyn 3.375 grams IV Q8H. Duration of treatment depends on the clinical picture. Monitor renal function and dose-adjust antibiotics. NRT per the primary team. Qualifiers: Sepsis type: sepsis due to unspecified organism Qualified Code(s): A41.9 - Sepsis, unspecified organism (2) Cellulitis of right lower extremity Status: Acute Assessment and plan: Location: Right foot/ankle. Causative organism: Unclear. Likely secondary to recent IVDU. CT of the RLE showed abscess, cellulitis, and tenosynovitis. Podiatry consulted. Status post I & D right ankle abscess. Operative note reviewed. Intra-op cultures are pending. Complicated due to hardware in the right knee. Currently on Daptomycin and Zosyn. (3) Abscess of right lower extremity excluding foot Status: Acute Assessment and plan: Location: Right foot/ankle. Causative organism: Unclear. Likely secondary to recent IVDU. CT of the RLE showed abscess, cellulitis, and tenosynovitis. Podiatry consulted. Status post I & D right ankle abscess. Operative note reviewed. Intra-op cultures are pending. Complicated due to hardware in the right knee. Currently on Daptomycin and Zosyn. (4) IV drug abuse Status: Acute Assessment and plan: Known Hep C positive. Check Hepatitis B serologies and HIV. (5) Hepatitis C Status: Chronic Qualifiers: Viral hepatitis chronicity: chronic Hepatic coma status: without hepatic coma Qualified Code(s): B18.2 - Chronic viral hepatitis C (6) Drug allergy, antibiotic Status: Acute Assessment and plan: Reports hives and rash with Vancomycin. Infectious Disease HPI - Data of Consult Patient: new to practice Consult date: 08/08/18 Requesting Physician: Jojo Hahn MD Primary Care Provider: PCP NONE - Consult Narrative Reason for consult: Right foot infection History of present illness: Ms. Gee is a 57 year old female with a past medical history of CHF, de pression, IV drug use, hepatitis C, and COPD. The patient was admitted to the hospital 08/07/18 for right foot and ankle cellulitis. We are consensual/ for rheumatic recommendations for right foot infection. Briefly, the patient is a 57-year-old female with past medical history as stated above. The patient presented to the emergency department with complaints of increasing redness, erythema, and pain after she injected IV drugs into her right foot on Saturday. Upon arrival, she was tachycardic and had leukocytosis. ESR was elevated at 21 with a CRP of 115. She had a CT of the right lower extremity that showed a moderate-sized subcutaneous fluid collection overlying the medial malleolus measuring approximate 4 x 4 by 1 cm, most likely an abscess and subcutaneous edema diffusely, most pronounced about the ankle, hind, and midfoot and likely reflecting cellulitis. There is mild to moderate tibialis posterior tenosynovitis, reactive versus infectious. Blood cultures were obtai poly 2 sets. She started on it. IV antibiotics and admitted to the hospital for further evaluation. Since admission, the patient has remained afebrile. She has continued to have some intermittent tachycardia and tachypnea. She had a chest x-ray that was negative. Podiatry consult and took the patient to the operating room last night and performed an I&D of the right ankle abscess. Intraoperative cultures are pending. Currently, the patient is on daptomycin and Zosyn. We have been asked to evaluate and make further recommendations. During my exam today, the patient and dorsal history as stated above. She does not recall having any fevers or chills or rigors prior to admission. She denies any headache or neck pain. She denies any chest pain or shortness of breath. She reports a chronic cough that is at baseline. She denies any nausea, vomiting, diarrhea, constipation. She denies abdominal pain or urinary complaints. She denies oral thrush or skin lesions except as previously mentioned. She states she injected IV opiates into her right ankle on Saturday and her symptoms started the next day and progressively got worse. He denies any open lesion or drainage. She states her foot was very painful and also prompted her to come to the emergency department. She reports she is got a history of IV drug use was clean for 5 years and recently started using again about a month ago. The patient lives at home with her son. She does not work outside the home. She smokes pack cigarettes per day. She denies alcohol use. IV drug use he did above. She denies any travel outside the [facility]. She denies any pet or animal exposures. She has known hep C positive, but denies any other chronic infectious diseases. CC: Jojo Hahn MD Past Med Surg Social Fam HX - Past Medical History Attestation: Yes The following information was validated with the patient. Source: patient, old records reviewed, nursing notes reviewed Medical history: CHF, COPD Psychiatric history: depression - Past Surgical History Additional surgical history: R knee - hardware - Social History Smoking Status: Current every day smoker Packs per day: 1 Alcohol use: none Drug use: IV Drug Use Occupational status: unemployed Current living situation: Home, With Family Activity Level: Independent ambulation Recent Out of Country Travel Within the Last 8 Weeks: No Exposure or Possible Exposure to Illness During Travel: No Infectious Disease-CN:Meds Duloxetine HCl [Cymbalta] 60 mg PO DAILY 08/07/18 [History] Quetiapine Fumarate [SEROquel] 12.5 mg PO HS PRN 08/07/18 [History] RX: Albuterol Sulfate [Albuterol Inhaler] 2 puff IH Q4H PRN 08/07/18 [History] Umeclidinium [place] [Incruse Ellipta] 62.5 mcg IH DAILY 08/07/18 [History] Allergy/AdvReac Type Severity Reaction Status Date / Time aspirin Allergy Hives Verified 08/07/18 04:00 vancomycin Allergy Hives Verified 08/07/18 04:00 All systems: reviewed and no additional remarkable complaints except as stated Exam - Constitutional Vitals: Temp Pulse Resp BP Pulse Ox 98.1 F 83 16 154/86 96 08/08/18 11:35 08/08/18 11:35 08/08/18 11:35 08/08/18 11:35 08/08/18 11:35 General appearance: cooperative, no acute distress, thin - Head Head exam: Present: atraumatic, normal inspection, normocephalic - Eye Eye exam: Present: EOMI, normal appearance, PERRL Pupils: Present: normal accommodation - ENT ENT exam: Present: mucous membranes moist - Neck Neck exam: Present: normal inspection - Respiratory Respiratory exam: Present: CTAB. Absent: rales, respiratory distress, rhonchi, wheezes - Cardiovascular Cardiovascular exam: Present: RRR, +S1, +S2 - GI/Abdominal GI/Abdominal exam: Present: normal bowel sounds, soft. Absent: distended, tenderness - Extremities Exam Extremities exam: Present: tenderness (right foot.). Absent: normal inspection (Right foot dressing C/D/I. Erythema noted proximal to the dressing to the middle of the right calf. Non-tender, but warm to touch. Right knee ROM normal and without erythema or edema.) - Neurological Exam Neurological exam: Present: alert, oriented X3, no focal deficits - Psychiatric Psychiatric exam: Present: normal affect, normal mood - Skin Skin exam: Present: dry, intact, normal color, warm Infectious Disease CN: Results - Labs CBC & Chem 7: 08/08/18 03:21 08/07/18 05:09 Cultures: Cultures 08/07/18 05:09 Blood Culture - Preliminary Peripheral Venipuncture Culture is incubating and being continuously monitored for growth. Final report to follow. 08/07/18 05:43 Blood Culture - Preliminary Peripheral Venipuncture Culture is incubating and being continuously monitored for growth. Final report to follow. Consult Discharge Plan - Plan Referrals: Ralph Worthington DO [Non-Partnered Physician] - - Attending Attestation I examined this patient and my medical decision-making was reviewed with the Resident Physician. I agree with the documented findings, disposition and treatment plan as described except to the extent set forth below. This is an addendum to original report dictated by Pam Jacome CNP. Please refer to Pam's note for full detail. Patient is a 57-year-old woman IV drug user post injection with IV drugs. CT of the right lower extremity showed abscess cellulitis and tenosynovitis. Patient was taken to surgery where she underwent I&D of the right ankle abscess.. Purulent drainage was expressed from the subcutaneous tissue on noted to track to the deep fascial tissue. Cultures were obtained and were sent to microbiology. Patient supposedly allergic to vancomycin so they want start the patient on empiric antibiotics. Patient was started on Zosyn and daptomycin were asked to evaluate the patient and make further recommendations. Currently patient appears comfortable she stating this having a lot of pain and she was complaining that another not controlling her pain and she was threatening to leave AMA. I did speak with the hospitalist staff and they are aware of her issues. Patient continues to be on daptomycin and Zosyn. On discharge consider switching the patient to combination of oral Bactrim and Augmentin to finish a 14 day course. Cultures are not appears to be in the system. I did call down to microbiology lab but there is nobody available at this time. Need to follow up on a person in the morning to make sure that it received the specimen intraoperatively. Hepatitis B and HIV serologies reviewed.
--- NOTE | 2018-08-08 13:00 | Internal Med Progress Note ---
Hospitalist Progress Note - Encounter Date of Encounter: 08/08/18 Time of Encounter: 12:57 - Subjective Interval History: Patient admitted with sepsis, cellulitis and abscess of right lower extremity and foot requiring incision and drainage. History of IVDU. Yesterday she underwent surgical incision and drainage for abscess. Moderate size subcutaneous fluid collection overlying the medial malleolus measuring approximately 4 x 4 x [address] of Rt foot. Also findings of subcutaneous edema reflecting cellulitis as well as [id number] tibialis posterior tenosynovitis. Blood cultures and wound cultures have been sent and are pending. No acute change patient condition overnight. Discussed the need for further inpatient stay requiring antibiotic therapy. Patient apprehensive at this time but she has agreed. - Exam Vitals: Temp Pulse Resp BP Pulse Ox 98.1 F 83 16 154/86 96 08/08/18 11:35 08/08/18 11:35 08/08/18 11:35 08/08/18 11:35 08/08/18 11:35 Exam: Gen. alert awake oriented interactive no acute distress HEENT normocephalic, atraumatic, pupils equal and reactive oral mucosa moist, poor dentition Cardiac regular rate rhythm positive S2 S1 no murmurs or gallops appreciated, radial pulses 2+ bilateral Respiratory diffuse wheezing on inspiratory and expiratory efforts, nonlabored Abdomen soft nontender to palpation positive bowel sounds Extremities bilateral upper extremities demonstrate multiple areas of abrasion mostly noted on bilateral hands additionally, there are injection sites on all 4 extremities, right lower extremity demonstrates erythema, and 2+ edema, incision from drain abscess to the medial portion of the right ankle, there is diffuse warmth and tense skin superiorly to the right knee Left lower extremity d emonstrates occasional injection sites but no signs of cellulitis or developing lesion/abscess. - Assessment and Plan (1) Abscess of right lower extremity excluding foot Current Visit: Yes Status: Acute Assessment and Plan: Patient has CT findings and clinical findings of abscess over her right medial malleolus secondary to IV drug use Was septic on arrival, this has since resolved Underwent incision and drainage yesterday afternoon Wound cultures sent and are pending Blood cultures pending Continue broad-spectrum coverage with daptomycin and Zosyn Infectious disease following, recommendations appreciated; duration of treatment to be determined upon clinical picture Podiatry seeing in consultation, recommendations appreciated (2) IV drug abuse Current Visit: Yes Status: Acute Assessment and Plan: History of IV drug use, Has recently been injecting into her Rt foot She now has an abscess requiring I&D see above (3) Sepsis Current Visit: Yes Status: Resolved Assessment and Plan: Resolved Blood cultures pending Wound cultures pending Continue broad-spectrum coverage Infectious disease following; recommendations appreciated (4) DVT prophylaxis Current Visit: Yes Status: Acute Assessment and Plan: Continue 3 times a day SC heparin - Time Spent with Patient Total time spent is greater than 50% in coordination of care (as documented) at patient's floor/unit and/or counseling patient: less than 15 minutes Plan of Care Discussed with: patient Internal Medicine: Result - Labs CBC & Chem 7: 08/08/18 03:21 08/07/18 05:09 Labs: Short CBC 08/08/18 Range/Units 03:21 WBC 10.7 (4.3-11.1) K/mcL Hgb 13.3 (11.5-15.4) g/dL Hct 41.9 (35.3-44.9) % Plt Count 223 (140-400) K/mcL Neutrophils # 8.8 (1.6-8.9) K/mcL - Impressions Impressions Chest X-Ray 08/07/18 11:44 IMPRESSION: No acute process. D/ / Pauline Flores MD / Pauline Flores MD Interpreting Provider: Pauline Flores MD Consult Discharge Plan - Plan Referrals: Ralph Worthington DO [Non-Partnered Physician] - (3) Sepsis Qualifiers: Sepsis type: sepsis due to unspecified organism Qualified Code(s): A41.9 - Sepsis, unspecified organism
[2018-08-08] MEDS: DAPTOmycin 400 MG in 0.9 % Sodium Chloride 100 ML IVPB SCH (13:30)
[2018-08-08] MEDS ORDERED: *HR* LORazepam 0.5 MG TABLET PO PRN (13:31)
[2018-08-08 15:36] LABS: HIV-1&2 Antibody & p24 Ag Nonreactive (Nonreactive); Hepatitis B Surface Antigen Nonreactive (Nonreactive)
[2018-08-08 15:45] LABS: Hepatitis B Surface Antibody 1314.52 mIU/mL
[2018-08-08] MEDS ORDERED: Naloxone 0.4 MG/ML INJ IVP PRN (15:58)
[2018-08-08] MEDS: (Umeclidinium Bromide [Incruse Ellipta] 62.5 MCG) IH SCH (17:56)
[2018-08-08] MEDS: OXYCODONE Oral CONC 10 MG/0.5 ML ORAL.SYG SL PRN (20:47)
--- NOTE | 2018-08-08 22:04 | Podiatry Progress Note ---
Date of Encounter: 08/08/18 Time of Encounter: 16:45 - Assessment and Plan (1) Abscess of right lower extremity excluding foot Current Visit: Yes Status: Acute Assessment: S/P I&D with Dr. Vick 08/07/18 Incision noted x 2 to right medial malleolus Incision noted to right lateral malleolus Packing noted to right medial malleolus WBC improving. Wound cultures sent and pending. Blood cultures pending, no growth at this time. Edema 2+, improving from yesterday Erythema noted outside of marked lines No pain with calf squeeze Plan: Removed packing with serosanginous drainage Maceration noted to medial malleolus wound edges. Painted with betadine. Packed with 1/4 inch iodaform gauze. Covered with adaptic, 4x4 dry gauze, ABD pad, and kerlex. Secured with JAMI bandage. Wound care orders placed; nursing to change daily. Continue IV atb- primary managing (2) Cellulitis of right lower extremity Current Visit: Yes Status: Acute Assessment: see above Plan: Continue IV atb. (3) IV drug abuse Current Visit: Yes Status: Acute Plan: Encouraged patient to stop using IV drugs. Will likely need social service consult for outpatient therapy Subjective Interval history: Patient awake in bed. Alert and oriented x 3. Visitors at bedside. Denies any fevers, chills, nausea, vomiting, or diarrhea. Denies any shortness of breath, calf pain, or chest pain. Reports pain to foot 10/10. Objective - Vital Signs Vital Signs: Vital Signs Temp Pulse Resp BP Pulse Ox 08/08/18 19:13 97.7 F 83 16 125/82 95 08/08/18 15:15 98.7 F 61 16 138/81 95 08/08/18 11:35 98.1 F 83 16 154/86 96 08/08/18 07:59 97.3 F L 82 16 132/81 97 08/08/18 03:37 97.7 F 82 16 132/74 97 08/07/18 23:11 97.7 F 85 16 95/62 92 Intake and Output 08/08/18 08/08/18 08/08/18 07:59 15:59 23:59 Intake Total 100 / 100 1680 / 1680 460 / 460 Balance 100 / 100 1680 / 1680 460 / 460 Intake: IV Fluids 100 / 100 1200 / 1200 100 / 100 0.9 % Sodium Chloride 1,000 ML 1000 / 1000 @ 125 mls/hr IVC .Q8H [facility] Rx#: [id number] Cubicin 400 MG In 0.9 % Sodium 100 / 100 Chloride 100 ML @ 200 mls/hr IVPB Q24H [facility] Rx#:[id number] Zosyn 3.375 GM In 0.9 % Sodium 100 / 100 100 / 100 100 / 100 Chloride (Mini-Bag +) 100 ML @ 25 mls/hr IVPB Q8H [facility] Rx#: [id number] Oral 480 / 480 360 / 360 Other: Meal Lunch Dinner Percent of Meal Consumed 10% 100% Weight 50.2 kg Patient Weight 08/08/18 23:59 Weight 50.2 kg - Exam Exam: Constitiutional: Alert and oriented x 3. Vascular: 2/4 DP/PT RLE, CFT <3 sec to all digits RLE, warm to warm from tibia to toes RLE, 2+ edema RLE, erythema noted RLE Neurologic: Sensation to touch, normal plantar response, Normal position sense dorsiflexion/plantar flexion Dermatologic: erythema noted RLE, incision noted to right medial and lateral malleolus, packing noted. moderate amount of serosanginous drainage noted. Musculoskeletal: 3/5 muscle strength and normal tone RLE - Lab Result Diagrams: 08/08/18 03:21 08/07/18 05:09 Labs: Abnormal lab results MCH 27.9 pg (28.0-33.3) L 08/08/18 03:21 ESR 21 mm/hr (0-15) H 08/07/18 14:11 Sodium 134 mEq/L (136-145) L 08/07/18 05:09 Calculated Osmolality 278 (280-300) L 08/07/18 05:09 C-Reactive Protein 115 mg/L (Less than 10) H 08/07/18 14:11 Microbiology, Last 48 Hours 08/07/18 05:09 Blood Culture - Preliminary Peripheral Venipuncture Culture is incubating and being continuously monitored for growth. Final report to follow. 08/07/18 05:43 Blood Culture - Preliminary Peripheral Venipuncture Culture is incubating and being continuously monitored for growth. Final report to follow. Consult Discharge Plan - Plan Additional Instructions: Follow up in wound care center with Dr. Vick. Please make appointment prior to d/c. Referrals: Ralph Worthington DO [Non-Partnered Physician] - Edgar Vick DPM [Partnered Physician] -
[2018-08-09] MEDS: *HR* OxyCODONE Immed Rel 5 MG TABLET PO PRN ×3 (02:22→16:09)
[2018-08-09 04:56] LABS: Basophils # 0.1 K/mcL (0.0-0.2); Basophils % 0.6 %; Eosinophils # 0.1 K/mcL (0.0-0.6); Eosinophils % 0.9 %; Hematocrit 39.9 % (35.3-44.9); Immature Granulocytes % 0.4 % (0-4); Lymphocytes % 38.1 %; Mean Corpuscular HGB Conc 32.6 g/dL (31.6-35.5); Mean Corpuscular Hemoglobin 28.5 pg (28.0-33.3); Mean Corpuscular Volume 87.5 fL (83.0-100.0); Mean Platelet Volume 10.4 fL (9.4-12.4); Monocytes # 0.6 K/mcL (0.0-1.3); Monocytes % 7.5 %; Neutrophils # 4.2 K/mcL (1.6-8.9); Platelet Count 230 K/mcL (140-400); Red Blood Count 4.56 M/mcL (3.82-4.97); Red Cell Distribution Width 13.1 % (11.5-14.5); Segmented Neutrophils % 52.5 %
[2018-08-09 05:16] LABS: BUN/Creatinine Ratio 17 (6-26); Blood Urea Nitrogen 10 mg/dL (6-20); Carbon Dioxide 26 mEq/L (23-29); Chloride 110 mEq/L (98-107); Glucose 96 mg/dL (70-105); Osmolality,Calculated 289 (280-300); Potassium 4.2 mEq/L (3.5-5.1); Sodium 140 mEq/L (136-145); eGFR For Non-African Americans > 60 (> 60)
[2018-08-09] MEDS: *HR* Heparin 5,000 UNIT/ML VIAL SQ SCH ×2 (06:21→16:09)
[2018-08-09] MEDS: Piperacillin/Tazobactam 3.375 GM in 0.9 % Sodium Chloride Mini Bag 100 ML IVPB SCH ×3 (06:22→21:23)
[2018-08-09] MEDS: (Umeclidinium Bromide [Incruse Ellipta] 62.5 MCG) IH SCH (09:12)
[2018-08-09] MEDS: Nicotine 21 MG PATCH.TD24 TD SCH (09:20)
--- NOTE | 2018-08-09 10:26 | Internal Med Progress Note ---
Hospitalist Progress Note - Encounter Date of Encounter: 08/09/18 Time of Encounter: 10:24 - Subjective Interval History: Patient admitted with sepsis, cellulitis and abscess of right lower extremity and foot requiring incision and drainage. History of IVDU. Resting comfortably in bed without distress at this time her main complaint is of withdrawal and pain to her right foot. Discussed with the patient the need for further antibiotic therapy. Discussed adding anxiolytics and breakthrough pain medication. Patient still appears to be apprehensive regarding whether or not to stay for antibiotic therapy. She was provided education regarding the need for continued antibiotic therapy and thus far has agreed to stay. - Exam Vitals: Temp Pulse Resp BP Pulse Ox 98.2 F 74 16 157/93 97 08/09/18 07:46 08/09/18 07:46 08/09/18 07:46 08/09/18 07:46 08/09/18 07:46 Exam: Gen. alert awake oriented interactive no acute distress HEENT normocephalic, atraumatic, pupils equal and reactive oral mucosa moist, poor dentition Cardiac regular rate rhythm positive S2 S1 no murmurs or gallops appreciated, radial pulses 2+ bilateral Respiratory diffuse wheezing on inspiratory and expiratory efforts, nonlabored Abdomen soft nontender to palpation positive bowel sounds Extremities : Abrasions and signs of injection on all 4 extremities Right lower extremity has improving edema now 1+, distal circulation intact. Right foot still erythematous and mildly tender to palpation. The skin remains warm to touch she continues to have intact sensory. Right foot and malleolus covered with gauze and JACK. No drainage noted - Assessment and Plan (1) Abscess of right lower extremity excluding foot Current Visit: Yes Status: Acute Assessment and Plan: Patient has CT findings and clinical findings of abscess over her right medial malleolus secondary to IV drug use Was septic on arrival, this has since resolved S/P twice a day Dr. Vargas 08/07/18 2 incisions to right medial malleolus Incision to right lateral malleolus Wound cultures-presumptive MRSA Blood cultures pending Continue broad-spectrum coverage with daptomycin and Zosyn Infectious disease following, recommendations appreciated; duration of treatment to be determined upon clinical picture Podiatry seeing in consultation, recommendations appreciated; orders to paint with Betadine, pack with 1/4 inch iodoform gauze, covered with Adaptic, 4 x 4 dry gauze, ABDs padded in Kerlix and secure with Jack bandage (2) IV drug abuse Current Visit: Yes Status: Acute Assessment and Plan: Discussed cessation Offered director social welfare and counseling services Patient declined (3) Sepsis Current Visit: Yes Status: Resolved (4) DVT prophylaxis Current Visit: Yes Status: Acute Assessment and Plan: Continue 3 times a day SC heparin - Time Spent with Patient Total time spent is greater than 50% in coordination of care (as documented) at patient's floor/unit and/or counseling patient: less than 15 minutes Plan of Care Discussed with: patient Internal Medicine: Result - Labs CBC & Chem 7: 08/09/18 04:09 08/09/18 04:09 Labs: Short CBC 08/09/18 Range/Units 04:09 WBC 8.0 (4.3-11.1) K/mcL Hgb 13.0 (11.5-15.4) g/dL Hct 39.9 (35.3-44.9) % Plt Count 230 (140-400) K/mcL Neutrophils # 4.2 (1.6-8.9) K/mcL BMP 08/09/18 04:09 Sodium 140 Potassium 4.2 Chloride 110 H Carbon Dioxide 26 BUN 10 Creatinine 0.58 L Glucose 96 Calcium 8.0 L Consult Discharge Plan - Plan Additional Instructions: Follow up in wound care center with Dr. Vick. Please make appointment prior to d/c. Referrals: Ralph Worthington DO [Non-Partnered Physician] - Edgar Vick DPM [Partnered Physician] - (Appointment has been requested. Our offices will call you with an appointment time and date.) (3) Sepsis Qualifiers: Sepsis type: sepsis due to unspecified organism Qualified Code(s): A41.9 - Sepsis, unspecified organism
[2018-08-09] MEDS: clonazePAM 0.5 MG TABLET PO PRN ×3 (11:51→21:26)
[2018-08-09] MEDS: DAPTOmycin 400 MG in 0.9 % Sodium Chloride 100 ML IVPB SCH (13:56)
[2018-08-09] MEDS: OXYCODONE Oral CONC 10 MG/0.5 ML ORAL.SYG SL PRN ×2 (14:04→21:24)
[2018-08-10] MEDS: *HR* OxyCODONE Immed Rel 5 MG TABLET PO PRN ×3 (00:24→16:08)
[2018-08-10] MEDS: OXYCODONE Oral CONC 10 MG/0.5 ML ORAL.SYG SL PRN ×3 (02:43→20:06)
[2018-08-10] MEDS: *HR* Heparin 5,000 UNIT/ML VIAL SQ SCH ×2 (05:31→18:33)
[2018-08-10] MEDS: Piperacillin/Tazobactam 3.375 GM in 0.9 % Sodium Chloride Mini Bag 100 ML IVPB SCH ×3 (05:32→22:14)
[2018-08-10 07:29] LABS: Basophils # 0.1 K/mcL (0.0-0.2); Basophils % 0.9 %; Eosinophils # 0.1 K/mcL (0.0-0.6); Eosinophils % 1.9 %; Hematocrit 46.3 % (35.3-44.9); Immature Granulocytes % 0.1 % (0-4); Lymphocytes # 3.1 K/mcL (0.6-4.6); Lymphocytes % 45.3 %; Mean Corpuscular HGB Conc 32.6 g/dL (31.6-35.5); Mean Corpuscular Hemoglobin 28.3 pg (28.0-33.3); Mean Corpuscular Volume 86.7 fL (83.0-100.0); Mean Platelet Volume 10.5 fL (9.4-12.4); Monocytes # 0.5 K/mcL (0.0-1.3); Monocytes % 6.6 %; Neutrophils # 3.1 K/mcL (1.6-8.9); Platelet Count 294 K/mcL (140-400); Red Blood Count 5.34 M/mcL (3.82-4.97); Red Cell Distribution Width 12.7 % (11.5-14.5); Segmented Neutrophils % 45.2 %
[2018-08-10 07:33] LABS: Hemoglobin 15.1 g/dL (11.5-15.4)
[2018-08-10 07:45] LABS: BUN/Creatinine Ratio 15 (6-26); Blood Urea Nitrogen 9 mg/dL (6-20); Calcium 8.8 mg/dL (8.6-10.3); Carbon Dioxide 27 mEq/L (23-29); Chloride 105 mEq/L (98-107); Glucose 85 mg/dL (70-105); Osmolality,Calculated 282 (280-300); Potassium 4.1 mEq/L (3.5-5.1); Sodium 137 mEq/L (136-145); eGFR For Non-African Americans > 60 (> 60)
[2018-08-10 07:50] LABS: Platelet Estimate Normal (Normal); Reactive Lymphocytes Present (Not Present)
[2018-08-10] MEDS: Nicotine 21 MG PATCH.TD24 TD SCH (09:54)
[2018-08-10] MEDS: clonazePAM 0.5 MG TABLET PO PRN ×3 (10:02→20:07)
[2018-08-10] MEDS: Tiotropium 18 MCG inhalation IH SCH (10:56)
--- NOTE | 2018-08-10 12:46 | Internal Med Progress Note ---
Hospitalist Progress Note - Encounter Date of Encounter: 08/10/18 Time of Encounter: 12:46 - Subjective Interval History: Patient admitted with sepsis, cellulitis and abscess of right lower extremity and foot requiring incision and drainage. History of IVDU. Resting comfortably in bed without distress at this time her main complaint is of withdrawal and pain to her right foot. Discussed with the patient the need for further antibiotic therapy. Discussed adding anxiolytics and breakthrough pain medication. Patient still appears to be apprehensive regarding whether or not to stay for antibiotic therapy. She was provided education regarding the need for continued antibiotic therapy and thus far has agreed to stay. - Exam Vitals: Temp Pulse Resp BP Pulse Ox 98.1 F 86 16 120/80 96 08/10/18 12:01 08/10/18 12:01 08/10/18 12:08/10/18 12:08/10/18 12:01 Exam: Gen. alert awake oriented interactive no acute distress HEENT normocephalic, atraumatic, pupils equal and reactive oral mucosa moist, poor dentition Cardiac regular rate rhythm positive S2 S1 no murmurs or gallops appreciated, radial pulses 2+ bilateral Respiratory diffuse wheezing on inspiratory and expiratory efforts, nonlabored Abdomen soft nontender to palpation positive bowel sounds Extremities : Abrasions and signs of injection on all 4 extremities Right lower extremity is without edema, distal circulation remains intact, no sensory deficits. Right foot still erythematous and mildly tender to palpation along sites of incision. The skin remains warm to touch. Right foot and malleolus covered with gauze and JACK. No drainage noted - Assessment and Plan (1) Abscess of right lower extremity excluding foot Current Visit: Yes Status: Acute Assessment and Plan: Patient has CT findings and clinical findings of abscess over her right medial malleolus secondary to IV drug use Was septic on arrival, this has since resolved S/P I&D Dr. Vargas 08/07/18 2 incisions to right medial malleolus Incision to right lateral malleolus Wound cultures-positive for MRSA Blood cultures NGTD Continue broad-spectrum coverage with daptomycin and Zosyn Infectious disease following, recommendations appreciated; duration of treatment to be determined upon clinical picture Podiatry seeing in consultation, recommendations appreciated; orders to paint with Betadine, pack with 1/4 inch iodoform gauze, covered with Adaptic, 4 x 4 dry gauze, ABDs padded in Kerlix and secure with Jack bandage (2) IV drug abuse Current Visit: Yes Status: Acute Assessment and Plan: Discussed cessation Offered manager social responsibility and counseling services Patient declined (3) Sepsis Current Visit: Yes Status: Resolved Assessment and Plan: Resolved Blood cultures pending Wound cultures pending Continue broad-spectrum coverage Infectious disease following; recommendations appreciated (4) DVT prophylaxis Current Visit: Yes Status: Acute Assessment and Plan: Continue 3 times a day SC heparin - Time Spent with Patient Total time spent is greater than 50% in coordination of care (as documented) at patient's floor/unit and/or counseling patient: less than 15 minutes Plan of Care Discussed with: patient Internal Medicine: Result - Labs CBC & Chem 7: 08/10/18 05:45 08/10/18 05:45 Labs: Short CBC 08/10/18 Range/Units 05:45 WBC 6.9 (4.3-11.1) K/mcL Hgb 15.1 D (11.5-15.4) g/dL Hct 46.3 H (35.3-44.9) % Plt Count 294 (140-400) K/mcL Neutrophils # 3.1 (1.6-8.9) K/mcL BMP 08/10/18 05:45 Sodium 137 Potassium 4.1 Chloride 105 Carbon Dioxide 27 BUN 9 Creatinine 0.59 L Glucose 85 Calcium 8.8 - Impressions Impressions Lower Extremity CT 08/07/18 04:19 IMPRESSION: 1. Moderate-size subcutaneous fluid collection overlying the medial malleolus measuring approximately 4 x 4 x 1 cm, most likely an abscess. 2. Subcutaneous edema diffusely, most pronounced about the ankle, hind and mid foot and likely reflecting cellulitis. 3. [id number]-[id number] tibialis posterior tenosynovitis, reactive versus infectious. D/ /07/2018 10:37:04 Je Byers MD / Hannah Faria Interpreting Provider: Je Byers MD Consult Discharge Plan - Plan Additional Instructions: Follow up in wound care center with Dr. Vick. Please make appointment prior to d/c. Referrals: Ralph Worthington DO [Non-Partnered Physician] - Edgar Vick DPM [Partnered Physician] - (Appointment has been requested. Our offices will call you with an appointment time and date.) (3) Sepsis Qualifiers: Sepsis type: sepsis due to unspecified organism Qualified Code(s): A41.9 - Sepsis, unspecified organism
[2018-08-10] MEDS: DAPTOmycin 400 MG in 0.9 % Sodium Chloride 100 ML IVPB SCH (13:27)
[2018-08-11] MEDS: *HR* OxyCODONE Immed Rel 5 MG TABLET PO PRN ×2 (04:09→10:36)
[2018-08-11] MEDS: Piperacillin/Tazobactam 3.375 GM in 0.9 % Sodium Chloride Mini Bag 100 ML IVPB SCH (05:18)
[2018-08-11] MEDS: *HR* Heparin 5,000 UNIT/ML VIAL SQ SCH (05:18)
[2018-08-11 05:38] LABS: Basophils # 0.1 K/mcL (0.0-0.2); Basophils % 1.3 %; Eosinophils # 0.2 K/mcL (0.0-0.6); Eosinophils % 2.7 %; Hematocrit 41.7 % (35.3-44.9); Immature Granulocytes % 0.2 % (0-4); Lymphocytes # 2.4 K/mcL (0.6-4.6); Lymphocytes % 39.8 %; Mean Corpuscular HGB Conc 33.6 g/dL (31.6-35.5); Mean Corpuscular Hemoglobin 28.3 pg (28.0-33.3); Mean Corpuscular Volume 84.2 fL (83.0-100.0); Monocytes # 0.4 K/mcL (0.0-1.3); Monocytes % 6.6 %; Platelet Count 284 K/mcL (140-400); Red Blood Count 4.95 M/mcL (3.82-4.97); Red Cell Distribution Width 12.7 % (11.5-14.5); Segmented Neutrophils % 49.4 %
[2018-08-11 06:08] LABS: BUN/Creatinine Ratio 24 (6-26); Blood Urea Nitrogen 14 mg/dL (6-20); Calcium 8.5 mg/dL (8.6-10.3); Carbon Dioxide 25 mEq/L (23-29); Chloride 105 mEq/L (98-107); Glucose 97 mg/dL (70-105); Osmolality,Calculated 282 (280-300); Potassium 3.9 mEq/L (3.5-5.1); Sodium 136 mEq/L (136-145); eGFR For Non-African Americans > 60 (> 60)
[2018-08-11] MEDS: Nicotine 21 MG PATCH.TD24 TD SCH (09:13)
[2018-08-11] MEDS: clonazePAM 0.5 MG TABLET PO PRN (09:15)
[2018-08-11] MEDS: Tiotropium 18 MCG inhalation IH SCH (10:19)
--- NOTE | 2018-08-11 10:54 | Infectious Disease Progress No ---
Date of Encounter: 08/11/18 Time of Encounter: 10:51 - Assessment and Plan (1) Sepsis Current Visit: Yes Status: Resolved The patient had two SIRS criteria on admission. Likely secondary to right foot/ankle infection. Improved. WBC normal. Tachycardia has resolved. Blood cultures drawn 08/07/18 are NGTD x 2 sets. Recommendations: Wound care and activity per Podiatry. Pain management per the primary team. Continue daptomycin 6mg/kg IV daily. Discontinue Zosyn. Duration of treatment depends on the clinical picture. Will discuss with Podiatry, but can likely transition to oral Bactrim when ready for discharge to complete a 14 day course. Treat through 08/21/18. Monitor renal function and dose-adjust antibiotics. NRT per the primary team. Qualifiers: Sepsis type: sepsis due to unspecified organism Qualified Code(s): A41.9 - Sepsis, unspecified organism (2) Cellulitis of right lower extremity Current Visit: Yes Status: Acute Location: Right foot/ankle. Causative organism: MRSA. Likely secondary to recent IVDU. CT of the RLE showed abscess, cellulitis, and tenosynovitis. Podiatry consulted. Status post I & D right ankle abscess. Operative note reviewed. Intra-op cultures as above. Complicated due to hardware in the right knee. Improved. Currently on Daptomycin and Zosyn. (3) Abscess of right lower extremity excluding foot Current Visit: Yes Status: Acute Location: Right foot/ankle. Causative organism: MRSA. Likely secondary to recent IVDU. CT of the RLE showed abscess, cellulitis, and tenosynovitis. Podiatry consulted. Status post I & D right ankle abscess. Operative note reviewed. Intra-op cultures as above. Complicated due to hardware in the right knee. Currently on Daptomycin and Zosyn. (4) IV drug abuse Current Visit: Yes Status: Acute Known Hep C positive. Hepatitis B serologies indicate immunity. HIV nonreactive. (5) Hepatitis C Current Visit: Yes Status: Chronic Qualifiers: Viral hepatitis chronicity: chronic Hepatic coma status: without hepatic coma Qualified Code(s): B18.2 - Chronic viral hepatitis C (6) Drug allergy, antibiotic Current Visit: Yes Status: Acute Reports hives and rash with Vancomycin. - Subjective Interval history: Patient seen and examined. No acute events noted overnight. Patient states overall she feels much better and wants to go home. Denies fevers, chills, or rigors. Denies chest pain, shortness breath, or cough. Denies nausea, vomiting, diarrhea, or constipation. Denies abdominal pain, urinary complaints, or appetite changes. Denies any oral thrush any skin lesions. Reports mild pain at surgical site, but otherwise denies pain. States the dressing was just changed this morning and overall looks much better. Infect Dis PN-Objective Data - Labs CBC & Chem 7: 08/11/18 05:03 08/11/18 05:03 Labs: Laboratory Results - last 24 hr 08/11/18 08/11/18 05:03 05:03 WBC 6.0 RBC 4.95 Hgb 14.0 Hct 41.7 MCV 84.2 MCH 28.3 MCHC 33.6 RDW 12.7 Plt Count 284 MPV 10.0 Immature Gran % 0.2 Seg Neutrophils % 49.4 Lymphocytes % 39.8 Monocytes % 6.6 Eosinophils % 2.7 Basophils % 1.3 Neutrophils # 3.0 Lymphocytes # 2.4 Monocytes # 0.4 Eosinophils # 0.2 Basophils # 0.1 Sodium 136 Potassium 3.9 Chloride 105 Carbon Dioxide 25 BUN 14 Creatinine 0.58 L Est GFR ( Amer) > 60 Est GFR (Non-Af Amer) > 60 BUN/Creatinine Ratio 24 Glucose 97 Calculated Osmolality 282 Calcium 8.5 L Cultures: Cultures 08/07/18 19:03 Anaerobic Culture - Preliminary Right Ankle At this time, no anaerobic growth is present. The culture will be finalized after 5 days of incubation. 08/07/18 19:03 Wound Culture - Final Right Ankle Methicillin Resistant S.aureus 08/07/18 05:09 Blood Culture - Preliminary Peripheral Venipuncture Culture is incubating and being continuously monitored for growth. Final report to follow. 08/07/18 05:43 Blood Culture - Preliminary Peripheral Venipuncture Culture is incubating and being continuously monitored for growth. Final report to follow. Serology 08/08/18 Range/Units 13:56 Hep Bs Antigen Nonreactive (Nonreactive) Hep Bs Antibody 1314.52 mIU/mL HIV Ag/Ab Combo Qual Nonreactive (Nonreactive) Exam - Constitutional Vitals: Temp Pulse Resp BP Pulse Ox 98.6 F 67 16 154/81 96 08/11/18 07:09 08/11/18 07:09 08/11/18 10:19 08/11/18 07:09 08/11/18 10:19 General appearance: average body habitus, cooperative, no acute distress - Head Head exam: Present: atraumatic, normal inspection, normocephalic - Eye Eye exam: Present: EOMI, normal appearance, PERRL Pupils: Present: normal accommodation - ENT ENT exam: Present: mucous membranes moist - Neck Neck exam: Present: normal inspection - Respiratory Respiratory exam: Present: CTAB. Absent: rales, respiratory distress, rhonchi, wheezes - Cardiovascular Cardiovascular exam: Present: RRR, +S1, +S2 - GI/Abdominal GI/Abdominal exam: Present: normal bowel sounds, soft. Absent: distended, tenderness - Extremities Exam Extremities exam: Absent: normal inspection (Right foot dressing is clean, dry, and intact. Edema of the toes and extremity superior to the surgical dressing is markedly improved. Erythema has resolved.) - Neurological Exam Neurological exam: Present: alert, oriented X3, no focal deficits - Psychiatric Psychiatric exam: Present: normal affect, normal mood - Skin Skin exam: Present: dry, intact, normal color, warm Consult Discharge Plan - Plan Instructions: Cellulitis (DC), Sepsis (DC) Additional Instructions: Follow up in wound care center with Dr. Vick. Please make appointment prior to d/c. Referrals: Ralph Worthington DO [Non-Partnered Physician] - Edgar Vick DPM [Partnered Physician] - (Appointment has been requested. Our offices will call you with an appointment time and date.) - Attending Attestation I examined this patient and my medical decision-making was reviewed with the Resident Physician. I agree with the documented findings, disposition and treatment plan as described except to the extent set forth below.
[2018-08-11 11:31] VITALS: BP 125/74
--- NOTE | 2018-08-11 11:56 | Discharge Summary ---
- NOTES TO OUTPATIENT PROVIDER Notes to Outpatient Provider: F/U Podiatry s/p I&D to right medial malleolus and right lateral malleolus. When cultures positive for MRSA. Infectious disease followed throughout stay. Recommend by mouth Bactrim at DC as the organism was showing sensitivity. Orders not resulted at time of discharge: Pending orders 08/07/18 05:09 Culture,Blood [BC] Stat 08/07/18 19:03 Culture,Anaerobic [RM] Routine 08/08/18 13:56 Hepatitis B Core Ab Total Routine Date of Encounter: 08/11/18 Time of Encounter: 11:53 - Discharge Diagnosis (1) Abscess of right lower extremity excluding foot Priority: Primary Status: Acute (2) IV drug abuse Priority: Secondary Status: Acute (3) Sepsis Priority: Secondary Status: Resolved Qualifiers: Sepsis type: sepsis due to unspecified organism Qualified Code(s): A41.9 - Sepsis, unspecified organism (4) DVT prophylaxis Priority: Secondary Status: Acute Hospital course: Ms. Gee is a 57 year old female who was admitted with right lower extremity and right foot swelling. Findings of abscess over her right medial malleolus secondary to IVDU. Additionally, she was septic on arrival. She underwent I&D by Dr. Vargas on 08/07/18. She has 2 incisions to the right medial malleolus incision to right lateral malleolus. Wound cultures positive for MRSA, blood cultures no growth to date. Cellulitis was initially extending from right foot to right knee with 2+ pitting edema. This has continued to improve throughout stay and she is now without pitting edema. Cellulitis resolving. Incisions are clean with mild erythema and without drainage. Unclear anginal form gauze packing in place. I discussed her case with both podiatry and infectious disease. She will go home with prescriptions for Betadine, form gauze, Adaptic, 4 x 4 gauze and ABD dressings to be wrapped in Kerlix and Jack bandage. She will have home health to assist with dressing changes. Additionally, she will be discharged with oral Bactrim for a 14 day course. additionally, she will be d/c with 5 days of [place] Q8H PRN. Discharge discussed with: patient, nurse, wine consultant - Time Spent with Patient Total time spent providing and/or coordinating discharge services: Less than 30 minutes - Discharge Medications Prescriptions: Hydrocodone/Acetaminophen [[place] 5-325 Tablet] 1 each PO Q8H PRN 3 Days #15 tablet PRN Reason: pain Home Medications: Albuterol Sulfate [Albuterol Inhaler] 2 puff IH Q4H PRN 08/07/18 [History] Duloxetine HCl [Cymbalta] 60 mg PO DAILY 08/07/18 [History] Quetiapine Fumarate [Seroquel] 12.5 mg PO HS PRN 08/07/18 [History] Umeclidinium [place] [Incruse Ellipta] 62.5 mcg IH DAILY 08/07/18 [History] Hydrocodone/Acetaminophen [[place] 5-325 Tablet] 1 each PO Q8H PRN 3 Days #15 tablet 08/11/18 [Rx] Sulfamethoxazole/Trimeth DS [Bactrim DS] 1 each PO BID 14 Days #28 tablet 08/11/18 [Rx] Allergies/Adverse Reactions: Allergy/AdvReac Type Severity Reaction Status Date / Time aspirin Allergy Hives Verified 08/07/18 04:00 vancomycin Allergy Hives Verified 08/07/18 04:00 Date of admission: 08/08/18 16:11 Primary care physician: PCP NONE Consults: 08/07/18 10:34 Consult to Podiatry [CONS] Stat Consulting Provider: [facility] Reason for Consult: Right lower extremity cellulitis/abscess Time Notified: 10:35 Call Completed: Yes 08/07/18 15:38 Consult to Infectious Diseases [CONS] Routine Consulting Provider: [facility] [place] Reason for Consult: starting Daptomycin Call Completed: Yes Discharging clinician: Kota Aguilera Anticipated date of discharge: 08/11/18 - Constitutional Vitals: Temp Pulse Resp BP Pulse Ox 98.4 F 82 16 125/74 95 08/11/18 11:30 08/11/18 11:30 08/11/18 11:30 08/11/18 11:30 08/11/18 11:30 General appearance: Present: A&O X 3 Exam: Gen. alert awake oriented interactive no acute distress HEENT normocephalic, atraumatic, pupils equal and reactive oral mucosa moist, poor dentition Cardiac regular rate rhythm positive S2 S1 no murmurs or gallops appreciated, radial pulses 2+ bilateral Respiratory diffuse wheezing on inspiratory and expiratory efforts, nonlabored Abdomen soft nontender to palpation positive bowel sounds Extremities : Abrasions and signs of injection on all 4 extremities Right lower extremity is without edema, distal circulation remains intact, no sensory deficits. Right foot still erythematous and mildly tender to palpation along sites of incision. The skin remains warm to touch. Packing intact, Right foot and malleolus covered with adaptic, gauze and JACK. No drainage noted - Patient Status Disposition: Home Health Service Condition: Fair Functional capacity at discharge: independent ambulation Overall status at discharge: patient is not back to baseline - Discharge Instructions Instructions: Cellulitis (DC), Sepsis (DC) Follow Up With: Ralph Worthington DO [Non-Partnered Physician] - Edgar Vick DPM [Partnered Physician] - (Appointment has been requested. Our offices will call you with an appointment time and date.) Additional Instructions: Follow up in wound care center with Dr. Vick. Please make appointment prior to d/c. - Diet and Activity Activity: increase activity as tolerated, resume usual activities as tolerated Diet: advance to your usual diet
--- NOTE | 2018-08-11 12:06 | Physician Discharge Referral ---
Home Health/Hosp Referral Info Transfer to: Home Health Attending Provider: May Provider in Charge Post Discharge: PCP - Diagnosis (1) Abscess of right lower extremity excluding foot Priority: Primary Status: Acute (2) IV drug abuse Priority: Secondary Status: Acute (3) Sepsis Priority: Secondary Status: Resolved (4) DVT prophylaxis Priority: Secondary Status: Acute - Respiratory Orders Smoking Cessation: Smoking cessation has been advised. For more information, call the [place] Tobacco Quit Line at 9-428-UWPW-NOW. - Diet/Nutrition Diet/Nutrition Orders: Regular - Activity Activity Orders: Ambulate - Services Needed Following services are medically necessary services: Correction Care Orders: Dressing change orders are as follows: paint with Betadine, pack with 1/4 inch iodoform gauze, covered with Adaptic, 4 x 4 dry gauze, ABDs padded in Kerlix and secure with Jack bandage - Transfer Medications Home Medications: Albuterol Sulfate [Albuterol Inhaler] 2 puff IH Q4H PRN 08/07/18 [History] Duloxetine HCl [Cymbalta] 60 mg PO DAILY 08/07/18 [History] Quetiapine Fumarate [Seroquel] 12.5 mg PO HS PRN 08/07/18 [History] Umeclidinium [place] [Incruse Ellipta] 62.5 mcg IH DAILY 08/07/18 [History] Allergies/Adverse Reactions: Allergy/AdvReac Type Severity Reaction Status Date / Time aspirin Allergy Hives Verified 08/07/18 04:00 vancomycin Allergy Hives Verified 08/07/18 04:00 Certification: Further, I certify that my clinical findings support that this patient is homebound (i.e. absences from home require considerable and taxing effort and are for medical reasons or yarsani services or infrequently or short duration when for other reasons) because: Homebound Reason: Patient requires assistance of a person or device to safely leave home Attestation: My signature below is to certify that this patient is under my care and that I, or nurse practitioner, or a physician's physician's assistant working with me, has a [id number] encounter with this patient.
[2018-08-11] MEDS: DAPTOmycin 400 MG in 0.9 % Sodium Chloride 100 ML IVPB SCH (13:27)
--- NOTE | 2018-08-11 16:08 | Podiatry Progress Note ---
Date of Encounter: 08/11/18 Time of Encounter: 11:30 - Assessment and Plan (1) Abscess of right lower extremity excluding foot Status: Acute Assessment: S/P I&D with Dr. Vick 08/07/18 Incision noted x 2 to right medial malleolus Incision noted to right lateral malleolus Packing noted to right medial malleolus Wound culture positive for MRSA Blood cultures pending, no growth at this time. No edema noted Erythema improving, noted around incisions. No pain with calf squeeze Plan: Maceration noted to medial malleolus wound edges. Painted with betadine. Covered with adaptic, 4x4 dry gauze, ABD pad, and kerlex. Secured with JAMI bandage. Local wound care Continue IV atb- ID managing Arrange home health. Follow up in wound clinic with Dr. Vick. Please make appointment prior to d/c. (2) Cellulitis of right lower extremity Status: Acute Assessment: see above Plan: Continue IV atb. (3) IV drug abuse Status: Acute Plan: Encouraged patient to stop using IV drugs. Will likely need social service consult for outpatient therapy Subjective Interval history: Patient awake in bed. Alert and oriented x 3. Denies any fevers, chills, nausea, vomiting, or diarrhea. Denies any shortness of breath, calf pain, or chest pain. Reports pain to foot 06/04. Objective - Vital Signs Vital Signs: Vital Signs Temp Pulse Resp BP Pulse Ox 08/11/18 11:30 98.4 F 82 16 125/74 95 08/11/18 10:19 16 96 08/11/18 07:09 98.6 F 67 16 154/81 93 08/11/18 03:32 98.6 F 78 16 157/92 94 08/10/18 23:26 98.2 F 77 16 153/90 99 08/10/18 16:02 98.2 F 86 16 150/90 92 Intake and Output 08/10/18 08/11/18 08/11/18 23:59 07:59 15:59 Intake Total 440 / 440 220 / 220 760 / 760 Balance 440 / 440 220 / 220 760 / 760 Intake: IV Fluids 200 / 200 100 / 100 200 / 200 Cubicin 400 MG In 0.9 % Sodium 100 / 100 100 / 100 Chloride 100 ML @ 200 mls/hr IVPB Q24H [facility] Rx#:[id number] Zosyn 3.375 GM In 0.9 % Sodium 100 / 100 100 / 100 100 / 100 Chloride (Mini-Bag +) 100 ML @ 25 mls/hr IVPB Q8H [facility] Rx#: [id number] Oral 240 / 240 120 / 120 560 / 560 Other: Meal Lunch Percent of Meal Consumed 80% # Voids 1 Weight 50.8 kg Patient Weight 08/11/18 23:59 Weight 50.8 kg - Lab Result Diagrams: 08/11/18 05:03 08/11/18 05:03 Labs: Abnormal lab results Reactive Lymphocytes Present (Not Present) A 08/10/18 05:45 ESR 21 mm/hr (0-15) H 08/07/18 14:11 Creatinine 0.58 mg/dL (0.60-1.20) L 08/11/18 05:03 Calcium 8.5 mg/dL (8.6-10.3) L 08/11/18 05:03 C-Reactive Protein 115 mg/L (Less than 10) H 08/07/18 14:11 Microbiology, Last 48 Hours 08/07/18 19:03 Anaerobic Culture - Preliminary Right Ankle At this time, no anaerobic growth is present. The culture will be finalized after 5 days of incubation. 08/07/18 19:03 Wound Culture - Final Right Ankle Methicillin Resistant S.aureus Consult Discharge Plan - Plan Instructions: Cellulitis (DC), Sepsis (DC) Additional Instructions: Follow up in wound care center with Dr. Vick. Please make appointment prior to d/c. Referrals: Ralph Worthington DO [Non-Partnered Physician] - (Please follow up with PCP in 7- 10 days. ) Edgar Vick DPM [Partnered Physician] - (Appointment has been requested. Our offices will call you with an appointment time and date.) Prescriptions: Hydrocodone/Acetaminophen [[place] 5-325 Tablet] 1 each PO Q8H PRN 3 Days #15 tablet PRN Reason: pain Sulfamethoxazole/Trimeth DS [Bactrim DS] 1 each PO BID 14 Days #28 tablet
== END 2018-08-11 15:17 | disposition home health service (06) | DRG 710 ==
LOC: 3BNU 03:55 → EMEROOARM 03:55 → 3BNU 13:12
PROVIDERS: ADMIT Internal Medicine; ATTEND Internal Medicine